=== PATIENT | female | born 1960 | race American Indian/Alaskan Native ===

== ENCOUNTER 2016-04-10 16:44 | Emergency (ER) | payer MEDICAID ==
[2016-04-10 17:51] LABS: Basophils % (Auto) 0.7 % (0.0-1.8); Eosinophils % (Auto) 2.8 % (0.0-4.3); Hematocrit 31.7 % (30.3-42.9); Hemoglobin 10.9 gm/dl (10.1-14.3); Mean Corpuscular HGB Conc 34 % (30-34); Mean Corpuscular Hemoglobin 27 pg (28-32); Mean Corpuscular Volume 79 fl (79-97); Platelet Count 220 K/mm3 (140-440); Red Blood Count 4.03 M/mm3 (3.65-5.03); Red Cell Distribution Width 13.5 % (13.2-15.2); White Blood Count 7.7 K/mm3 (4.5-11.0)
[2016-04-10 18:01] LABS: INR 0.88 (0.87-1.13)
[2016-04-10 18:03] LABS: Partial Thromboplastin Time 25.8 Sec. (24.2-36.6)
[2016-04-10 18:17] LABS: Anion Gap 17 mmol/L; BUN/Creatinine Ratio 33.52; Blood Urea Nitrogen 57 mg/dL (7-17); Calcium 9.3 mg/dL (8.4-10.2); Carbon Dioxide 28 mmol/L (22-30); Chloride 88.9 mmol/L (98-107); Glucose 103 mg/dL (65-100); Potassium 4.8 mmol/L (3.6-5.0); Sodium 129 mmol/L (137-145)
[2016-04-11] MEDS ORDERED: DUONEB 0.5 MG-3 MG/3 ML SOLN IH ONE ×2 (00:08→01:37)
[2016-04-11] MEDS ORDERED: MAGNESIUM SULFATE 2GM/50ML 2 GM/50 ML BAG IV ONE (00:08)
[2016-04-11] MEDS ORDERED: LASIX IV ONE (00:08)
[2016-04-11] MEDS ORDERED: SUBLIMAZE IV ONE (00:08)
[2016-04-11 00:22] LABS: Bilirubin,Urine NEG (Negative); Blood,Urine NEG (Negative); Ketones,Urine NEG (Negative); Leukocyte Esterase,Urine NEG (Negative); Nitrite,Urine NEG (Negative); Protein,Urine <15 mg/dL mg/dL (Negative); Urobilinogen,Urine < 2.0 mg/dL (<2.0)
--- NOTE | 2016-04-11 01:03 | Cat Scan Report ---
FINAL REPORT EXAM: CT HEAD/BRAIN WO CON HISTORY: headache dizziness intermittent slurred speech TECHNIQUE: Noncontrast CT axial images of the brain. PRIORS: None. FINDINGS: No parenchymal mass, mass effect, hemorrhage, midline shift or hydrocephalus. No evidence of acute cortical infarct. No abnormal, extra-axial fluid or air collection. Osseous calvarium grossly intact. IMPRESSION: 1. No acute intracranial findings.
--- NOTE | 2016-04-11 01:03 | Emergency Department Report ---
HPI - General Chief Complaint: Dyspnea/Respdistress Time Seen by Provider: 04/10/16 23:37 - HPI HPI: The patient is a 55-year-old female with a history of COPD, chronic kidney disease, fibromyalgia, who presents for evaluation of dyspnea. The patient reports 2-3 days of a nonproductive cough, mild, associated with worsening of dyspnea from baseline, dyspnea severe, exacerbated with lying flat or exertion, improved with sitting up, and associated with bilateral lower leg swelling. She reports some mild aching bilateral chest wall pain with coughing. The patient denies fever, midsternal pressure-like chest pain, syncope, hemoptysis, unilateral leg swelling, recent immobilization, history of DVT or PE, recent cancer. ED Past Medical Hx - Past Medical History Previous Medical History?: Yes Hx Hypertension: Yes Hx COPD: Yes Additional medical history: lupus, fibromyalgia - Surgical History Past Surgical History?: Yes Additional Surgical History: tonsillectomy, total r) hip - Social History Smoking Status: Never Smoker Substance Use Type: None - Medications Home Medications: Home Medications Medication Instructions Recorded Confirmed Last Taken Type ALBUTEROL NEB's [Proventil 0.083%] 2.5 mg IH TID PRN 11/29/13 11/29/13 11/28/13 21:00 History Albuterol Sulfate [Proventil HFA] 1 - 2 puff IH Q4H PRN 11/29/13 11/29/13 21:00 History Budesonide [Pulmicort] 0.5 mg IH BID 11/29/13 11/29/13 11/28/13 21:00 History Fluconazole [Diflucan 200] 200 mg PO BID 11/29/13 11/29/13 11/28/13 21:00 History Hydroxychloroquine [Plaquenil] 200 mg PO QDAY 11/29/13 11/29/13 11/28/13 21:00 History Ibuprofen [Motrin] 600 mg PO Q8H PRN #50 tablet 11/29/13 Unknown Rx Lisinopril/Hydrochlorothiazide 1 tab PO QDAY 11/29/13 11/29/13 11/28/13 21:00 History [Zestoretic 20-12.5 mg] Loratadine [Claritin] 10 mg PO DAILY 11/29/13 11/29/13 11/28/13 21:00 History Montelukast [Singulair] 10 mg PO QPM 11/29/13 11/29/13 11/28/13 21:00 History NIFEdipine [Nifedipine] 10 mg PO DAILY 11/29/13 11/29/13 11/28/13 21:00 History Tiotropium [Spiriva] 18 mcg IH QDAY 11/29/13 11/29/13 11/28/13 21:00 History Clindamycin [Clindamycin CAP] 300 mg PO Q6H #28 capsule 02/17/14 Unknown Rx Clindamycin [Clindamycin CAP] 300 mg PO TID #12 capsule 04/09/14 Unknown Rx ALBUTEROL Inhaler [ProAir HFA 2 puff IH QID PRN #1 inhalation 04/11/16 Unknown Rx Inhaler] Benzonatate [Tessalon Perles] 100 mg PO Q8HR #14 capsule 04/11/16 Unknown Rx Furosemide [Lasix] 20 mg PO QDAY #10 tablet 04/11/16 Unknown Rx Ondansetron [Zofran TAB] 4 mg PO Q8HR PRN #20 tablet 04/11/16 Unknown Rx predniSONE [Deltasone] 20 mg PO QDAY #5 tab 04/11/16 Unknown Rx traMADol [Ultram 50 MG tab] 50 mg PO Q6HR PRN #10 tablet 04/11/16 Unknown Rx ED Review of Systems ROS: Stated complaint: DIFF BREATING/DIFF URINATING/CONFUSION Other details as noted in HPI Constitutional: denies: fever ENT: denies: throat or neck pain Respiratory: reports cough, shortness of breath Cardiovascular: denies: chest pain Endocrine: denies unexplained weight loss or gain Gastrointestinal: denies: abdominal pain, nausea Genitourinary: denies: dysuria Musculoskeletal: reports leg swelling Skin: denies: rash Neurological: denies: headache Hematological/Lymphatic: denies: easy bleeding or easy bruising Psych: denies sadness or hopelessness Physical Exam - Physical Exam Vital Signs: Vital Signs 04/10/16 04/10/16 04/11/16 17:09 23:55 00:00 Temperature 98.5 F Pulse Rate 99 H 95 H Respiratory 16 Rate Blood Pressure 121/72 136/80 136/80 O2 Sat by Pulse 100 100 100 Oximetry 04/11/16 04/11/16 00:09 00:10 Temperature Pulse Rate 82 Respiratory 20 Rate Blood Pressure 129/92 O2 Sat by Pulse 100 98 Oximetry Physical Exam: General: well-nourished, well-developed, no acute distress Head: Normocephalic, atraumatic Eyes: normal sclera ENT: Mucous membranes are pink and moist Neck: trachea midline, neck supple, No neck stiffness, no cervical adenopathy Respiratory: Diminished breath sounds and wheezing present throughout lung alaniz bilaterally, no costal retractions, no respiratory distress Cardio: S1 and S2 present, no murmurs, rubs, gallops, capillary refill is brisk Abdomen: Normoactive bowel sounds, soft abdomen, no rigidity, no guarding or rebound tenderness Chest WALL/Back: No tenderness to palpation of the chest wall, no CVA tenderness with percussion Musc: 1+ bilateral lower leg pitting edema Skin: No rash Neuro: no facial drooping, normal speech Psych: Normal affect ED Course Vital Signs 04/10/16 04/10/16 04/11/16 17:09 23:55 00:00 Temperature 98.5 F Pulse Rate 99 H 95 H Respiratory 16 Rate Blood Pressure 121/72 136/80 136/80 O2 Sat by Pulse 100 100 100 Oximetry 04/11/16 04/11/16 00:09 00:10 Temperature Pulse Rate 82 Respiratory 20 Rate Blood Pressure 129/92 O2 Sat by Pulse 100 98 Oximetry ED Medical Decision Making - Lab Data Result diagrams: 04/10/16 17:33 04/11/16 03:07 - Medical Decision Making The patient was seen and examined by myself. The patient is placed on a ekg monitor tech and continuous pulse ox. On initial evaluation, the patient was found to be in no distress. Evaluation orders were placed. The patient is given a duoneb breathing treatment, IV magnesium, and IV Solu-Medrol for txt of COPD. the patient is given Tessalon Perles for cough and IV Zofran for nausea. EKG is not concerning. Chest x-ray negative for focal consolidation, pleural effusions, pulmonary congestion, pneumothorax, or other acute cardio pulmonary disease process. Lab results reveal elevated BNP of 400, and elevated BUN 57, mildly elevated creatinine 1.7, ratio greater than 21, consistent with exam findings of dehydration and prerenal kidney injury. The patient is given 1 L normal saline fluid bolus for treatment of dehydration and mild prerenal kidney injury. Repeat BMP reveals resolution of prerenal CALLUM, Cr now normalized to 1.2. The patient was reevaluated and reported that her symptoms were markedly improved. On reexamination wheezing has significantly improved and is now only end- expiratory. Additionally the patient has normal oxygen saturation on pulse oximetry, normal respiratory rate, and she appears pleasant, smiling, and eager to go home. The patient is stable for discharge with outpatient follow-up. The patient is given follow-up and return instructions. The patient expressed understanding and agreed with the plan. The patient is given a prescription for prednisone. The patient is discharged in stable condition. Critical care attestation.: If time is entered above; I have spent that time in minutes in the direct care of this critically ill patient, excluding procedure time. ED Disposition Clinical Impression: CALLUM (acute kidney injury), Acute exacerbation of chronic obstructive pulmonary disease (COPD), Dehydration Leg edema Qualifiers: Laterality: bilateral Qualified Code(s): R60.0 - Localized edema Disposition: DISCHARGED TO HOME OR SELFCARE Is pt being admited?: No Does the pt Need Aspirin: No Condition: Stable Instructions: Chronic Kidney Disease (ED), Chronic Obstructive Pulmonary Disease (ED), Leg Edema (ED) Prescriptions: ALBUTEROL Inhaler [ProAir HFA Inhaler] 2 puff IH QID PRN #1 inhalation PRN Reason: Shortness Of Breath Benzonatate [Tessalon Perles] 100 mg PO Q8HR #14 capsule Furosemide [Lasix] 20 mg PO QDAY #10 tablet Ondansetron [Zofran TAB] 4 mg PO Q8HR PRN #20 tablet PRN Reason: Nausea predniSONE [Deltasone] 20 mg PO QDAY #5 tab traMADol [Ultram 50 MG tab] 50 mg PO Q6HR PRN #10 tablet PRN Reason: Pain Referrals: PRIMARY CARE, [Primary Care Provider] - 3-5 Days Time of Disposition: 01:02
[2016-04-11] MEDS ORDERED: NACL 0.9% 1000 ML 1,000 ML IV ONE (01:37)
[2016-04-11] MEDS ORDERED: ZOFRAN IV ONE (01:37)
[2016-04-11] MEDS ORDERED: TESSALON PERLES PO ONE (01:39)
[2016-04-11 03:45] LABS: BUN/Creatinine Ratio 35.83; Calcium 8.9 mg/dL (8.4-10.2); Potassium 4.4 mmol/L (3.6-5.0)
[2016-04-11 04:09] VITALS: BP 126/74
--- NOTE | 2016-04-11 07:17 | XRay Report ---
ROUTINE CHEST, TWO VIEWS: HISTORY: Shortness of breath. The trachea, heart, mediastinal contour, lung alaniz and bony thorax are unremarkable. IMPRESSION: Unremarkable chest x-ray.
== END 2016-04-11 04:10 | disposition home or self-care (01) ==
LOC: ED 16:44
DX: N17.9 Acute kidney failure, unspecified (principal); I10 Essential (primary) hypertension; L93.0 Discoid lupus erythematosus; J44.1 Chronic obstructive pulmonary disease with (acute) exacerbation; E86.0 Dehydration; R60.0 Localized edema
CPT/HCPCS: 36415; 70450; 71020; 80048; 81001; 83880; 84484; 85025; 85610; 85670; 85730; 93005; 93010; 94640; 96365; 96375; 99285; J1940; J2405; J2930; J3010; J3475; J7030

== ENCOUNTER 2016-07-20 05:06 | Emergency (ER) | payer MEDICAID ==
[2016-07-20 05:47] LABS: Hematocrit 33.9 % (30.3-42.9); Hemoglobin 11.6 gm/dl (10.1-14.3); Mean Corpuscular HGB Conc 34 % (30-34); Mean Corpuscular Hemoglobin 27 pg (28-32); Mean Corpuscular Volume 80 fl (79-97); Platelet Count 227 K/mm3 (140-440); Red Blood Count 4.24 M/mm3 (3.65-5.03); Red Cell Distribution Width 13.8 % (13.2-15.2); White Blood Count 4.6 K/mm3 (4.5-11.0)
[2016-07-20 05:59] LABS: Alanine Aminotransferase 25 units/L (7-56); Albumin/Globulin Ratio 1.4 %; Alkaline Phosphatase 89 units/L (35-129); Anion Gap 18 mmol/L; BUN/Creatinine Ratio 21.11; Blood Urea Nitrogen 19 mg/dL (7-17); Calcium 9.5 mg/dL (8.4-10.2); Carbon Dioxide 26 mmol/L (22-30); Chloride 99.3 mmol/L (98-107); Glucose 108 mg/dL (65-100); Sodium 139 mmol/L (137-145); Total Protein 6.8 g/dL (6.3-8.2)
[2016-07-20 06:32] LABS: Blastocytes % (Manual) 0 %; Diff Status Complete; Platelet Estimate Consistent w Auto; RBC Morphology Normal
[2016-07-20 07:27] LABS: Bacteria,Urine 1+ /HPF (Negative); Bilirubin,Urine NEG (Negative); Blood,Urine NEG (Negative); Ketones,Urine NEG (Negative); Leukocyte Esterase,Urine NEG (Negative); Nitrite,Urine NEG (Negative); Protein,Urine <15 mg/dL mg/dL (Negative); Urobilinogen,Urine < 2.0 mg/dL (<2.0); WBC,Urine < 1.0 /HPF (0.0-6.0)
[2016-07-20] MEDS ORDERED: LASIX PO ONE (10:38)
[2016-07-20] MEDS ORDERED: NORCO 5/325 PO ONE (10:38)
--- NOTE | 2016-07-20 10:43 | Emergency Department Report ---
HPI - General Chief Complaint: Extremity Injury, Lower Time Seen by Provider: 07/20/16 10:25 - HPI HPI: Room 33 The patient is a 56-year-old female presenting with a chief complaint of bilateral lower extremity swelling. States her symptoms began approximately one week ago with gradual swelling of both lower extremities. Patient also complains of chronic back pain is worsened with increased weight of her legs. Patient states swelling decreases when she rest with her legs elevated but return when she ambulates. The patient gives her pain a score of 9/10. Approximately 1 month ago the patient states she had a similar episode but not as severe with swelling in both legs. Patient states she had a negative workup and follow-up with a primary physician but was not given a diagnosis. Location: Bilateral lower extremities Duration: One week Quality: Swelling Severity: 9/10 Modifying factors: [see above] Context: [see above] Mode of transportation: [not driving] ED Past Medical Hx - Past Medical History Hx Hypertension: Yes Hx COPD: Yes Additional medical history: lupus, fibromyalgia - Surgical History Additional Surgical History: tonsillectomy, total r) hip, stents in bilateral hip - Family History Family history: no significant - Social History Smoking Status: Never Smoker Substance Use Type: None - Medications Home Medications: Home Medications Medication Instructions Recorded Confirmed Last Taken Type ALBUTEROL NEB's [Proventil 0.083%] 2.5 mg IH TID PRN 11/29/13 11/29/13 11/28/13 21:00 History Albuterol Sulfate [Proventil HFA] 1 - 2 puff IH Q4H PRN 11/29/13 11/29/13 21:00 History Budesonide [Pulmicort] 0.5 mg IH BID 11/29/13 11/29/13 11/28/13 21:00 History Fluconazole [Diflucan 200] 200 mg PO BID 11/29/13 11/29/13 11/28/13 21:00 History Hydroxychloroquine [Plaquenil] 200 mg PO QDAY 11/29/13 11/29/13 11/28/13 21:00 History Ibuprofen [Motrin] 600 mg PO Q8H PRN #50 tablet 11/29/13 Unknown Rx Lisinopril/Hydrochlorothiazide 1 tab PO QDAY 11/29/13 11/29/13 11/28/13 21:00 History [Zestoretic 20-12.5 mg] Loratadine [Claritin] 10 mg PO DAILY 11/29/13 11/29/13 11/28/13 21:00 History Montelukast [Singulair] 10 mg PO QPM 11/29/13 11/29/13 11/28/13 21:00 History NIFEdipine [Nifedipine] 10 mg PO DAILY 11/29/13 11/29/13 11/28/13 21:00 History Tiotropium [Spiriva] 18 mcg IH QDAY 11/29/13 11/29/13 11/28/13 21:00 History Clindamycin [Clindamycin CAP] 300 mg PO Q6H #28 capsule 02/17/14 Unknown Rx Clindamycin [Clindamycin CAP] 300 mg PO TID #12 capsule 04/09/14 Unknown Rx ALBUTEROL Inhaler [ProAir HFA 2 puff IH QID PRN #1 inhalation 04/11/16 Unknown Rx Inhaler] Benzonatate [Tessalon Perles] 100 mg PO Q8HR #14 capsule 04/11/16 Unknown Rx Furosemide [Lasix] 20 mg PO QDAY #10 tablet 04/11/16 Unknown Rx Ondansetron [Zofran TAB] 4 mg PO Q8HR PRN #20 tablet 04/11/16 Unknown Rx predniSONE [Deltasone] 20 mg PO QDAY #5 tab 04/11/16 Unknown Rx traMADol [Ultram 50 MG tab] 50 mg PO Q6HR PRN #10 tablet 04/11/16 Unknown Rx Furosemide [Lasix] 20 mg PO QDAY #14 tablet 07/20/16 Unknown Rx HYDROcodone/APAP 5-325 [[place] 1 - 2 each PO Q6HR PRN #14 tablet 07/20/16 Unknown Rx 5/325] ED Review of Systems ROS: Stated complaint: LEGS/FEET EDEMA Other details as noted in HPI Comment: All other systems reviewed and negative Constitutional: denies: chills, fever Eyes: denies: eye pain, eye discharge, vision change ENT: denies: ear pain, throat pain Respiratory: denies: cough, shortness of breath, wheezing Cardiovascular: denies: chest pain, palpitations Endocrine: no symptoms reported Gastrointestinal: denies: abdominal pain, nausea, diarrhea Genitourinary: denies: urgency, dysuria, discharge Musculoskeletal: myalgia Skin: denies: rash, lesions Neurological: denies: headache, weakness, paresthesias Psychiatric: denies: anxiety, depression Hematological/Lymphatic: other (bilateral lower extremity edema) Physical Exam - Physical Exam Vital Signs: Vital Signs 07/20/16 05:13 Temperature 98.2 F Pulse Rate 89 Respiratory 16 Rate Blood Pressure 123/80 O2 Sat by Pulse 100 Oximetry Physical Exam: GENERAL: The patient is well-developed well-nourished female lying on stretcher not appearing to be in acute distress. [] HEENT: Normocephalic. Atraumatic. Extraocular motions are intact. Patient has moist mucous membranes. NECK: Supple. Trachea midline CHEST/LUNGS: Clear to auscultation. There is no respiratory distress noted. HEART/CARDIOVASCULAR: Regular. There is no tachycardia. There is no gallop rub or murmur. ABDOMEN: Abdomen is soft, nontender. Patient has normal bowel sounds. There is no abdominal distention. SKIN: There is no rash. There is 1-2+ bilateral lower extremity pitting edema. There is no diaphoresis. NEURO: The patient is awake, alert, and oriented. The patient is cooperative. The patient has normal speech MUSCULOSKELETAL:There is no evidence of acute injury. ED Course Vital Signs 07/20/16 05:13 Temperature 98.2 F Pulse Rate 89 Respiratory 16 Rate Blood Pressure 123/80 O2 Sat by Pulse 100 Oximetry ED Medical Decision Making - Lab Data Result diagrams: 07/20/16 05:22 07/20/16 05:22 Laboratory Tests 07/20/16 07/20/16 07/20/16 05:22 05:22 06:49 WBC 4.6 RBC 4.24 Hgb 11.6 Hct 33.9 MCV 80 MCH 27 L MCHC 34 RDW 13.8 Plt Count 227 Lymph % (Auto) Information Systems Technician Add Manual Diff Complete Total Counted 100 Seg Neutrophils % Information Systems Technician Seg Neuts % (Manual) 22.0 L Band Neutrophils % 1.0 Lymphocytes % (Manual) 56.0 H Reactive Lymphs % (Man) 0 Monocytes % (Manual) 13.0 H Eosinophils % (Manual) 7.0 H Basophils % (Manual) 1.0 Metamyelocytes % 0 Myelocytes % 0 Promyelocytes % 0 Blast Cells % 0 Nucleated RBC % Not Reportable Seg Neutrophils # Man 1.0 L Band Neutrophils # 0.0 Lymphocytes # (Manual) 2.6 Abs React Lymphs (Man) 0.0 Monocytes # (Manual) 0.6 Eosinophils # (Manual) 0.3 Basophils # (Manual) 0.0 Metamyelocytes # 0.0 Myelocytes # 0.0 Promyelocytes # 0.0 Blast Cells # 0.0 WBC Morphology Not Reportable Hypersegmented Neuts Not Reportable Hyposegmented Neuts Not Reportable Hypogranular Neuts Not Reportable Smudge Cells Not Reportable Toxic Granulation Not Reportable Toxic Vacuolation Not Reportable Dohle Bodies Not Reportable Pelger-Huet Anomaly Not Reportable Lola Rods Not Reportable Platelet Estimate Consistent w auto Clumped Platelets Not Reportable Plt Clumps, EDTA Not Reportable Large Platelets Not Reportable Giant Platelets Not Reportable Platelet Satelliting Not Reportable Plt Morphology Comment Not Reportable RBC Morphology Normal Dimorphic RBCs Not Reportable Polychromasia Not Reportable Hypochromasia Not Reportable Poikilocytosis Not Reportable Anisocytosis Not Reportable Microcytosis Not Reportable Macrocytosis Not Reportable Spherocytes Not Reportable Pappenheimer Bodies Not Reportable Sickle Cells Not Reportable Target Cells Not Reportable Tear Drop Cells Not Reportable Ovalocytes Not Reportable Helmet Cells Not Reportable De Jesus-Redford Bodies Not Reportable [place] Rings Not Reportable [place] Cells Not Reportable Bite Cells Not Reportable Crenated Cell Not Reportable Elliptocytes Not Reportable Acanthocytes (Spur) Not Reportable Rouleaux Not Reportable Hemoglobin C Crystals Not Reportable Schistocytes Not Reportable Malaria parasites Not Reportable Karthik Bodies Not Reportable Hem Pathologist Commnt No Sodium 139 Potassium 4.0 Chloride 99.3 Carbon Dioxide 26 Anion Gap 18 BUN 19 H Creatinine 0.9 Estimated GFR > 60 BUN/Creatinine Ratio 21.11 Glucose 108 H Calcium 9.5 Total Bilirubin 0.40 AST 34 ALT 25 Alkaline Phosphatase 89 NT-Pro-B Natriuret Pep 138.9 Total Protein 6.8 Albumin 4.0 Albumin/Globulin Ratio 1.4 Urine Color Straw Urine Turbidity Clear Urine pH 7.0 Ur Specific [place] 1.004 Urine Protein <15 mg/dl Urine Glucose (UA) Neg Urine Ketones Neg Urine Blood Neg Urine Nitrite Neg Urine Bilirubin Neg Urine Urobilinogen < 2.0 Ur Leukocyte Esterase Neg Urine WBC (Auto) < 1.0 Urine RBC (Auto) 1.0 U Epithel Cells (Auto) < 1.0 Urine Bacteria (Auto) 1+ - Radiology Data Radiology results: report reviewed (bilateral lower extremity Doppler), image reviewed (bilateral lower extremity Doppler) Bilateral lower extremity Doppler (read by technologist)-no evidence of DVT/SVT - Differential Diagnosis CHF, DVTs, hypoalbuminemia, renal failure Critical care attestation.: If time is entered above; I have spent that time in minutes in the direct care of this critically ill patient, excluding procedure time. ED Disposition Clinical Impression: Bilateral lower extremity edema Disposition: DISCHARGED TO HOME OR SELFCARE Is pt being admited?: No Does the pt Need Aspirin: No Condition: Stable Instructions: Leg Edema (ED) Additional Instructions: Return to the emergency department immediately should you develop worsening symptoms, fever, inability to tolerate food or liquid or any other concerns. Prescriptions: Furosemide [Lasix] 20 mg PO QDAY #14 tablet HYDROcodone/APAP 5-325 [[place] 5/325] 1 - 2 each PO Q6HR PRN #14 tablet PRN Reason: Pain Referrals: PRIMARY CARE, [Primary Care Provider] - 3-5 Days DANO KENNEDY MD [Staff Physician] - 3-5 Days Time of Disposition: 12:48
[2016-07-20 12:55] VITALS: BP 122/86
== END 2016-07-20 12:55 | disposition home or self-care (01) ==
LOC: ED 05:06
DX: R60.0 Localized edema (principal); G89.29 Other chronic pain; J44.9 Chronic obstructive pulmonary disease, unspecified; I10 Essential (primary) hypertension; Z88.0 Allergy status to penicillin; Z88.2 Allergy status to sulfonamides; Z88.8 Allergy status to other drugs, medicaments and biological substances
CPT/HCPCS: 36415; 80053; 81001; 83880; 85007; 85025; 93970

== ENCOUNTER 2017-11-29 13:14 | Outpatient (CLI) | payer MEDICAID ==
--- NOTE | 2017-11-29 14:33 | XRay Report ---
BILATERAL HIPS WITH PELVIS, 3 VIEWS: History: Pain. Findings: Bone mineralization is within normal limits. There is no evidence for fracture, dislocation or pelvic diastasis. Previous right hip arthroplasty is evident. The hardware appears well applied with no evidence of fracture or loosening. The left hip is within normal limits. Bilateral common iliac stents are partially imaged. The soft tissues are unremarkable. Impression: Unremarkable exam. Stable appearance of the right hip prosthesis.
== END 2017-11-29 13:15 | disposition home or self-care (01) ==
LOC: XRAY 13:14
PROVIDERS: ATTEND Internal Medicine Rheumatology
DX: M25.551 Pain in right hip (principal); M25.552 Pain in left hip; I10 Essential (primary) hypertension; J44.9 Chronic obstructive pulmonary disease, unspecified
CPT/HCPCS: 73521

== ENCOUNTER 2018-10-06 12:36 | Emergency (ER) | payer MEDICAID ==
[2018-10-06 13:03] VITALS: BP 128/74
--- NOTE | 2018-10-06 13:04 | Event Note ---
ED Screening Note Date of service: 10/06/18 Time: 12:59 ED Screening Note: This is a 58 y.o. F. that presents to the ER with swelling and pain to right hand. Patient states she was stung by a wasp. She started having tonsilar swelling and lips itching. Patient took 4 x 25 mg Benadryl prior to arrival. This initial assessment/diagnostic orders/clinical plan/treatment(s) is/are subject to change based on patients health status, clinical progression and re- assessment by fellow clinical providers in the ED. Further treatment and workup at subsequent clinical providers discretion. Patient/guardian urged not to elope from the ED as their condition may be serious if not clinically assessed and managed. Initial orders include:
[2018-10-06] MEDS ORDERED: DECADRON IM ONE (13:33)
[2018-10-06] MEDS ORDERED: ULTRAM PO ONE (13:46)
--- NOTE | 2018-10-06 13:51 | Emergency Department Report ---
ED Allergic Reaction HPI - General Chief complaint: Allergic Reaction Stated complaint: ALLERGIC REACTION Time Seen by Provider: 10/06/18 12:59 Source: patient Mode of arrival: Ambulatory Limitations: No Limitations - History of Present Illness Initial Comments: Patient is a 58-year-old Female who was stung by wasp on her right hand prior to arrival. Patient immediately started having some mild shortness of breath and tingling to the face and lips. Patient took 4 Benadryl prior to arrival and had to use her albuterol inhaler. Patient states her shortness of breath is improved. Patient denies syncope or current shortness of breath. Symptoms: itching, lip swelling, difficulty breathing, nausea. denies: hoarseness, syncopy, vomiting Severity: moderate - Related Data Home Medications Medication Instructions Recorded Confirmed Last Taken ALBUTEROL NEB's [Proventil 0.083%] 2.5 mg IH TID PRN 11/29/13 11/29/13 11/28/13 21:00 Albuterol Sulfate [Proventil HFA] 1 - 2 puff IH Q4H PRN 11/29/13 11/29/13 11/28/13 21:00 Budesonide [Pulmicort] 0.5 mg IH BID 11/29/13 11/29/13 11/28/13 21:00 Fluconazole [Diflucan 200] 200 mg PO BID 11/29/13 11/29/13 11/28/13 21:00 Hydroxychloroquine [Plaquenil] 200 mg PO QDAY 11/29/13 11/29/13 11/28/13 21:00 Lisinopril/Hydrochlorothiazide 1 tab PO QDAY 11/29/13 11/29/13 11/28/13 21:00 [Zestoretic 20-12.5 mg] Loratadine [Claritin] 10 mg PO DAILY 11/29/13 11/29/13 11/28/13 21:00 Montelukast [Singulair] 10 mg PO QPM 11/29/13 11/29/13 11/28/13 21:00 NIFEdipine [Nifedipine] 10 mg PO DAILY 11/29/13 11/29/13 11/28/13 21:00 Tiotropium [Spiriva] 18 mcg IH QDAY 11/29/13 11/29/13 11/28/13 21:00 Previous Rx's Medication Instructions Recorded Last Taken Type Ibuprofen [Motrin] 600 mg PO Q8H PRN #50 tablet 11/29/13 Unknown Rx Clindamycin [Clindamycin CAP] 300 mg PO Q6H #28 capsule 02/17/14 Unknown Rx Clindamycin [Clindamycin CAP] 300 mg PO TID #12 capsule 04/09/14 Unknown Rx ALBUTEROL Inhaler (OR & NICU) 2 puff IH QID PRN #1 inhalation 04/11/16 Unknown Rx [ProAir HFA Inhaler] Benzonatate [Tessalon Perles] 100 mg PO Q8HR #14 capsule 04/11/16 Unknown Rx Furosemide [Lasix] 20 mg PO QDAY #10 tablet 04/11/16 Unknown Rx Ondansetron [Zofran TAB] 4 mg PO Q8HR PRN #20 tablet 04/11/16 Unknown Rx predniSONE [Deltasone] 20 mg PO QDAY #5 tab 04/11/16 Unknown Rx traMADol [Ultram 50 MG tab] 50 mg PO Q6HR PRN #10 tablet 04/11/16 Unknown Rx Furosemide [Lasix] 20 mg PO QDAY #14 tablet 07/20/16 Unknown Rx HYDROcodone/APAP 5-325 [[place] 1 - 2 each PO Q6HR PRN #14 tablet 07/20/16 Unknown Rx 5/325] predniSONE [Deltasone] 20 mg PO QDAY #5 tab 10/06/18 Unknown Rx traMADol [Ultram] 50 mg PO Q6HR PRN #12 tablet 10/06/18 Unknown Rx Allergies Allergy/AdvReac Type Severity Reaction Status Date / Time bee venom protein (honey bee) Allergy Angioedema Verified 10/06/18 12:40 Penicillins Allergy Shortness Verified 02/17/14 03:26 of Breath pregabalin [From Lyrica] Allergy Unknown Verified 04/10/16 17:09 Sulfa (Sulfonamide Allergy Shortness Verified 02/17/14 03:26 Antibiotics) of Breath ED Review of Systems ROS: Stated complaint: ALLERGIC REACTION Other details as noted in HPI Comment: All other systems reviewed and negative ED Past Medical Hx - Past Medical History Previous Medical History?: Yes Hx Hypertension: Yes Hx COPD: Yes Additional medical history: lupus, fibromyalgia - Surgical History Past Surgical History?: Yes Additional Surgical History: tonsillectomy, total r) hip, stents in bilateral hip - Social History Smoking Status: Never Smoker Substance Use Type: None - Medications Home Medications: Home Medications Medication Instructions Recorded Confirmed Last Taken Type ALBUTEROL NEB's [Proventil 0.083%] 2.5 mg IH TID PRN 11/29/13 11/29/13 11/28/13 21:00 History Albuterol Sulfate [Proventil HFA] 1 - 2 puff IH Q4H PRN 11/29/13 11/29/13 11/28/13 21:00 History Budesonide [Pulmicort] 0.5 mg IH BID 11/29/13 11/29/13 11/28/13 21:00 History Fluconazole [Diflucan 200] 200 mg PO BID 11/29/13 11/29/13 11/28/13 21:00 History Hydroxychloroquine [Plaquenil] 200 mg PO QDAY 11/29/13 11/29/13 11/28/13 21:00 History Ibuprofen [Motrin] 600 mg PO Q8H PRN #50 tablet 11/29/13 Unknown Rx Lisinopril/Hydrochlorothiazide 1 tab PO QDAY 11/29/13 11/29/13 11/28/13 21:00 History [Zestoretic 20-12.5 mg] Loratadine [Claritin] 10 mg PO DAILY 11/29/13 11/29/13 11/28/13 21:00 History Montelukast [Singulair] 10 mg PO QPM 11/29/13 11/29/13 11/28/13 21:00 History NIFEdipine [Nifedipine] 10 mg PO DAILY 11/29/13 11/29/13 11/28/13 21:00 History Tiotropium [Spiriva] 18 mcg IH QDAY 11/29/13 11/29/13 11/28/13 21:00 History Clindamycin [Clindamycin CAP] 300 mg PO Q6H #28 capsule 02/17/14 Unknown Rx Clindamycin [Clindamycin CAP] 300 mg PO TID #12 capsule 04/09/14 Unknown Rx ALBUTEROL Inhaler (OR & NICU) 2 puff IH QID PRN #1 inhalation 04/11/16 Unknown Rx [ProAir HFA Inhaler] Benzonatate [Tessalon Perles] 100 mg PO Q8HR #14 capsule 04/11/16 Unknown Rx Furosemide [Lasix] 20 mg PO QDAY #10 tablet 04/11/16 Unknown Rx Ondansetron [Zofran TAB] 4 mg PO Q8HR PRN #20 tablet 04/11/16 Unknown Rx predniSONE [Deltasone] 20 mg PO QDAY #5 tab 04/11/16 Unknown Rx traMADol [Ultram 50 MG tab] 50 mg PO Q6HR PRN #10 tablet 04/11/16 Unknown Rx Furosemide [Lasix] 20 mg PO QDAY #14 tablet 07/20/16 Unknown Rx HYDROcodone/APAP 5-325 [[place] 1 - 2 each PO Q6HR PRN #14 tablet 07/20/16 Unknown Rx 5/325] predniSONE [Deltasone] 20 mg PO QDAY #5 tab 10/06/18 Unknown Rx traMADol [Ultram] 50 mg PO Q6HR PRN #12 tablet 10/06/18 Unknown Rx ED Physical Exam - General Limitations: No Limitations General appearance: alert, in no apparent distress - Head Head exam: Present: atraumatic, normocephalic - Eye Eye exam: Present: normal appearance - ENT ENT exam: Present: mucous membranes moist - Neck Neck exam: Present: normal inspection - Respiratory Respiratory exam: Present: normal lung sounds bilaterally. Absent: respiratory distress, wheezes, rales, rhonchi - Cardiovascular Cardiovascular Exam: Present: regular rate, normal rhythm. Absent: systolic murmur, diastolic murmur, rubs, gallop - GI/Abdominal GI/Abdominal exam: Present: soft, normal bowel sounds. Absent: distended, tenderness, guarding, rebound - Extremities Exam Extremities exam: Present: normal inspection - Back Exam Back exam: Present: normal inspection - Neurological Exam Neurological exam: Present: alert, oriented X3 - Psychiatric Psychiatric exam: Present: normal affect, normal mood - Skin Skin exam: Present: warm, dry, intact, normal color, other (erythema to the dordum of the right hand). Absent: rash ED Course Vital Signs 10/06/18 12:59 Temperature 98.8 F Pulse Rate 99 H Respiratory 16 Rate Blood Pressure 128/74 [Left] O2 Sat by Pulse 100 Oximetry ED Medical Decision Making - Medical Decision Making Patient had begun treatment prior to arrival with Benadryl. Patient's itching is improved. Patient given Decadron shots blunt the further allergic response patient also given [place] for pain. Patient be discharged home with medications for symptomatic relief. Critical care attestation.: If time is entered above; I have spent that time in minutes in the direct care of this critically ill patient, excluding procedure time. ED Disposition Clinical Impression: Wasp sting Qualifiers: Encounter type: initial encounter Injury intent: accidental or unintentional Qualified Code(s): T63.461A - Toxic effect of venom of wasps, accidental (unintentional), initial encounter Allergic reaction Qualifiers: Encounter type: initial encounter Qualified Code(s): T78.40XA - Allergy, unspecified, initial encounter Disposition: DC-01 TO HOME OR SELFCARE Is pt being admited?: No Does the pt Need Aspirin: No Condition: Stable Instructions: Insect Bite or Sting (ED), Allergies (ED) Time of Disposition: 13:50
== END 2018-10-06 14:44 | disposition home or self-care (01) ==
LOC: ED 12:36
DX: T63.461A Toxic effect of venom of wasps, accidental (unintentional), initial encounter (principal); I10 Essential (primary) hypertension; J44.9 Chronic obstructive pulmonary disease, unspecified; M32.9 Systemic lupus erythematosus, unspecified; M79.7 Fibromyalgia; Z79.899 Other long term (current) drug therapy; Z79.1 Long term (current) use of non-steroidal anti-inflammatories (NSAID); Z91.030 Bee allergy status; Z88.0 Allergy status to penicillin; Z88.2 Allergy status to sulfonamides; Z88.8 Allergy status to other drugs, medicaments and biological substances; Z90.89 Acquired absence of other organs; Z96.643 Presence of artificial hip joint, bilateral; Y92.89 Other specified places as the place of occurrence of the external cause
CPT/HCPCS: 96372; 99282; J1100

== ENCOUNTER 2020-08-14 10:51 | Outpatient (CLI) | payer MEDICAID ==
[2020-08-14 11:49] LABS: Blood Urea Nitrogen 16 mg/dL (7-17)
--- NOTE | 2020-08-14 17:12 | Cat Scan Report ---
CLINICAL DATA: LLQ PAIN , LEG SWELLING TECHNICAL DATA: CT imaging of pelvis without IV nonionic contrast infusion was performed. Imaging was presented in th e axial, coronal and sagittal imaging planes.All CT scans at this location are performed using CT dos e reduction for ALARA by means of automated exposure control. FINDINGS Right hip arthroplasties present producing streak artifact Bilateral iliac venous stents. Soft tissues are normal. Bony structures are intact. Portion of the ga strointestinal tract that is imaged and is within normal limits IMPRESSION: No acute abnormality identified Signer Name: Thompson Lopez MD Signed: 08/14/2020 5:08 PM Workstation Name: [id number]
== END 2020-08-14 10:52 | disposition home or self-care (01) ==
LOC: CT 10:51
PROVIDERS: ATTEND Radiology Vascular & Interventional Radiology
DX: R10.32 Left lower quadrant pain (principal); R22.41 Localized swelling, mass and lump, right lower limb
CPT/HCPCS: 36415; 72193; 82565; 84520; Q9967